=== PATIENT | female | born 1965 | race Caucasian/White ===

== ENCOUNTER 2021-02-23 15:53 | Outpatient (CLI) | payer OTHER, SELFPAY ==
--- NOTE | 2021-02-23 16:11 | XR_ITS ---
WS: [id number] Left hand, 3 views, 02/23/2021 Clinical Data: FATIGUE, PAIN IN JOINT, INSOMNIA Comparison: None. Findings: No fractures or dislocations are seen. The soft tissues are unremarkable. The joint spaces are normal XR/XR hand LT min 3V* [id number] Impression: Negative left hand.
--- NOTE | 2021-02-23 16:11 | XR_ITS ---
WS: [id number] Right hand, 3 views, 02/23/2021 Clinical Data: FATIGUE,PAIN IN JOINT,INSOMNIA Comparison: None. Findings: No fractures or dislocations are seen. The soft tissues are unremarkable. The joint space s are normal XR/XR hand RT min 3V* [id number] Impression: Negative right hand.
== END 2021-02-23 15:54 | disposition home or self-care (01) ==
PROVIDERS: PCP Nurse Practitioner Family; Visit Provider Nurse Practitioner Family
DX: R53.83 Other fatigue (principal); M25.50 Pain in unspecified joint; G47.00 Insomnia, unspecified
CPT/HCPCS: 73130

== ENCOUNTER → 2021-04-18 15:02 | Outpatient (BNVA) | payer OTHER, SELFPAY | PROVIDERS: PCP Nurse Practitioner Family; Visit Provider Specialist | DX: M25.531 Pain in right wrist (principal); M25.532 Pain in left wrist; R20.0 Anesthesia of skin; R20.2 Paresthesia of skin | CPT/HCPCS: 95910 ==

== ENCOUNTER 2021-09-22 14:23 | Outpatient (CLI) | payer OTHER, SELFPAY ==
--- NOTE | 2021-09-22 14:39 | XR_ITS ---
WS: [id number] Chest 2 views, 09/22/2021 Clinical Data: COUGH Comparison: None. Findings: No nodules, masses or effusions are seen. The heart is normal. The pulmonary vascularity is not increased. No pneumonia or pneumothorax is seen. XR/XR chest 2V* [id number] Impression: Negative chest.
== END 2021-09-22 14:24 | disposition home or self-care (01) ==
PROVIDERS: PCP Nurse Practitioner Family; Visit Provider Nurse Practitioner Family
DX: R05.9 Cough, unspecified (principal)
CPT/HCPCS: 71046

== ENCOUNTER 2023-12-05 14:12 | Outpatient (CLI) | payer OTHER, SELFPAY ==
--- NOTE | 2023-12-05 14:18 | MM_ITS ---
WS: [id number] BILATERAL 3D TOMOSYNTHESIS DIGITAL SCREENING MAMMOGRAPHY WITH CAD CLINICAL INFORMATION: SCREENING HISTORY: Screening mammogram. No current complaints. COMPARISON: 2013 TECHNIQUE: Bilateral CC and MLO views. FINDINGS: The breasts are composed of heterogeneous fibroglandular density tissue, which can limit the detectio n of small underlying mass lesions. No suspicious mass, asymmetry, calcifications, or architectural d istortion. No evidence of malignancy. Biopsy marker LEFT breast. A few incidental punctate calcificat ions. IMPRESSION: MM/[place] [id number] BI-RADS: 2-Benign FOLLOW UP: 1 Year Follow-up Recommend return to annual screening mammography.
== END 2023-12-05 14:13 | disposition home or self-care (01) ==
LOC: RAD 14:12
PROVIDERS: PCP Nurse Practitioner Family; Visit Provider Nurse Practitioner Family
DX: Z12.31 Encounter for screening mammogram for malignant neoplasm of breast (principal)
CPT/HCPCS: 77063; 77067

== ENCOUNTER 2024-01-30 09:47 | Emergency (ER) | payer OTHER, SELFPAY ==
[2024-01-30 09:58] VITALS: BP 179/93; PULSE 69; RESP 14; TEMP 36.6; O2SAT 98
[2024-01-30 10:22] VITALS: PULSE 70; O2SAT 96
[2024-01-30 10:31] LABS: Basophils # 0.1 10^3/uL (0.0-0.1); Basophils % 1.4 %; Eosinophils # 0.1 10^3/uL (0.0-0.8); Eosinophils % 2.5 %; Hematocrit 46.2 % (36-47); Lymphocytes # 1.6 10^3/uL (0.8-4.8); Lymphocytes % 28.9 %; Mean Corpuscular HGB Conc 34.2 g/dL (30-55); Mean Corpuscular Hemoglobin 34.3 pg (27-33); Mean Corpuscular Volume 100.2 fl (85-98); Monocytes # 0.4 10^3/uL (0.2-0.9); Monocytes % 6.2 %; Neutrophils # 3.44 10^3/uL (1.8-7.7); Neutrophils % 60.6 %; Nucleated Red Blood Cells % 0 %; Platelet Count 324 10^3/cmm (157-399); Red Blood Count 4.61 10^6/uL (3.85-5.65); Red Cell Distribution Width 11.6 % (12.1-15.1); White Blood Count 5.67 10^3/uL (3.29-11.43)
--- NOTE | 2024-01-30 10:31 | ECG_ITS ---
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 Measurements Intervals [place] Rate: 59 P: 60 CT: 187 QRS: 8 QRSD: 86 T: 38 QT: 394 QTc: 390 Interpretive Statements SINUS BRADYCARDIA LOW QRS VOLTAGE IN PRECORDIAL LEADS [QRS DEFLECTION < 1.0 mV IN CHEST LEADS] No previous ECG available for comparison Electronically Signed On 01-30-2024 20:01:32 CDT by Jeannie Rome M.D. [email or web address]
[2024-01-30 10:37] VITALS: BP 170/97; BP 171/98; BP 177/97; PULSE 66; PULSE 67; PULSE 68
[2024-01-30 11:04] LABS: Alanine Aminotransferase 26 U/L (0-33); Albumin Level 4.7 g/dL (3.5-5.2); Alkaline Phosphatase 99 U/L (35-105); Anion Gap 17.3 (5-19); Aspartate Amino Transferase 26 U/L (0-32); Blood Urea Nitrogen 12 mg/dL (6-20); Calcium 9.5 mg/dL (8.5-10.5); Carbon Dioxide 26 mmol/L (22-29); Chloride 98 mmol/L (98-107); Globulin 3.7 g/dL (1.3-4.6); Glomerular Filtration Rate 85.6 mL/min (90-130); Glucose 103 mg/dL (65-115); Osmolality Calculated 284 mOsm/kg (285-295); Potassium 4.3 mmol/L (3.5-5.1); Sodium 137 mmol/L (136-145); Total Bilirubin 0.3 mg/dL (0.15-1.2); Total Protein 8.4 g/dL (6.6-8.7)
--- NOTE | 2024-01-30 11:48 | ED_ITS ---
HPI - Ear Problem 2 General: Chief complaint: Ear Stated complaint: dizzy, ear pain, weakness, headache Time Seen by Provider: 01/30/24 10:03 Source: patient Mode of arrival: ambulatory History of Present Illness: 58-year-old female presents to the [facility] ency room with complaints of ear pain and dizziness. She sometimes has pain in her neck and into her arm. The dizziness seems to occur at random times she does not notice anything that exacerbates or relieves it. No difficulty with vision speech swallowing no ataxia. No focal neurologic deficits are noted MD Complaint: ear pain Location: left ear Relieving factors: nothing Exacerbating factors: nothing Associated symptoms: Reports ear or mastoid pain; Denies external ear pain, fever(s), headache(s), hearing loss, neck pain, rhinorrhea or tinnitus Review of Systems 2 Const: Denies: fever(s), chills, body aches, change in appetite, fatigue or malaise ENMT: Reports: ear or mastoid pain; Denies: throat pain, tinnitus, nasal discharge or nasal congestion Card: Denies: chest pain, edema, dyspnea on exertion or orthopnea Resp: Denies: dyspnea, productive cough or non-productive cough GI: Denies: abdominal pain, nausea, vomiting, hematemesis, coffee ground emesis, diarrhea, constipation, bloating, hematochezia or melena : Denies: flank pain, difficulty voiding, dysuria, urinary frequency or urinary urgency Musc: Denies: neck pain Skin/Breast: Denies: rash or pruritus Neuro: Denies: headache(s) PFSH ED 2 PFSH: Social History Smoking and tobacco/nicotine status: never used tobacco/nicotine Physical Exam 2 Const: COMMON NORMALS: no acute distress GENERAL APPEARANCE: cooperative and comfortable ORIENTATION/CONSCIOUSNESS: Yes awake, Yes oriented to person, Yes oriented to place and Yes oriented to time HENMT: COMMON NORMALS: normocephalic, atraumatic, hearing grossly normal bilaterally, external ears normal, EAC's normal, TM's normal bilaterally, Normal nasal mucous membranes and turbinates present, moist oral mucous membranes and oropharynx normal HEAD & SCALP: normocephalic and atraumatic NOSE: Normal nasal mucous membranes and turbinates present EXTERNAL EAR: Yes external ears normal EXTERNAL AUDITORY CANAL: EAC's normal TYMPANIC MEMBRANE: TM's normal bilaterally Eye: COMMON NORMALS: Equal, round and reactive pupils present, EOMs intact bilaterally, conjunctivae normal and no scleral icterus CONJUNCTIVA: Yes conjunctivae normal PUPIL: Yes Equal, round and reactive pupils present Neck/C-Spine: COMMON NORMALS: full ROM, no lymphadenopathy, supple and no JVD Lymph: LYMPHATIC: no lymphadenopathy noted and no lymphedema noted Resp: COMMON NORMALS: normal respiratory effort, No retractions, No use of accessory muscles and clear to auscultation bilaterally AUSCULTATION: clear to auscultation bilaterally Cardio: COMMON NORMALS: no JVD, regular rate, regular rhythm and No murmurs present (Cardio) RATE: regular rate RHYTHM: regular rhythm GI: COMMON NORMALS: Soft to palpation and No hepatosplenomegaly present A USCULTATION: Yes normoactive bowel sounds PALPATION: Yes Soft to palpation, No Tenderness to palpation present (GI), No Guarding due to palpation present (GI) and Yes No hepatosplenomegaly present Extremity: COMMON NORMALS: normal to inspection, capillary refill normal, no clubbing, cyanosis or edema, no calf tenderness and no pedal edema Neuro: SENSORIUM/ORIENTATION: Yes oriented to person, Yes oriented to place and Yes oriented to time Skin: COMMON NORMALS: no rashes or lesions noted GENERAL SKIN EXAM: no rashes or lesions noted Course 2 Vital Signs: Vital signs: Vital Signs Temperature 97.9 F 01/30/24 09:58 Pulse Rate 76 01/30/24 13:44 Respiratory Rate 14 01/30/24 09:58 Blood Pressure 150/88 01/30/24 13:44 Pulse Oximetry 98 01/30/24 13:44 Oxygen Delivery Me thod Room Air 01/30/24 10:22 [facility] - Ear Medical Decision Making Labs and imaging reviewed. No emergent findings neurologic exam is normal. Will start on meclizine to use as needed for labyrinthitis. Follow-up with her primary care if persistent. Medical Records I reviewed the patient's medical records. Lab Data I reviewed the patient's lab results. 01/30/24 10:20 01/30/24 10:20 Laboratory Results WBC 5.67 10^3/uL (3.29-11.43) 01/30/24 10:20 RBC 4.61 10^6/uL (3.85-5.65) 01/30/24 10:20 Hgb 15.80 g/dL (11.27-16.99) 01/30/24 10:20 Hct 46.2 % (36-47) 01/30/24 10:20 MCV 100.2 fl (85-98) H 01/30/24 10:20 MCH 34.3 pg (27-33) H 01/30/24 10:20 MCHC 34.2 g/dL (30-55) 01/30/24 10:20 RDW 11.6 % (12.1-15.1) L 01/30/24 10:20 Plt Count 324 10^3/cmm (157-399) 01/30/24 10:20 MPV 9.0 fL (7.4-10.4) 01/30/24 10:20 Neut % (Auto) 60.6 % 01/30/24 10:20 Lymph % (Auto) 28.9 % 01/30/24 10:20 [place] % (Auto) 6.2 % 01/30/24 10:20 Eos % (Auto) 2.5 % 01/30/24 10:20 Baso % (Auto) 1.4 % 01/30/24 10:20 Neut # (Auto) 3.44 10^3/uL (1.8-7.7) 01/30/24 10:20 Lymph # (Auto) 1.6 10^3/uL (0.8-4.8) 01/30/24 10:20 [place] # (Auto) 0.4 10^3/uL (0.2-0.9) 01/30/24 10:20 Eos # (Auto) 0.1 10^3/uL (0.0-0.8) 01/30/24 10:20 Baso # (Auto) 0.1 10^3/uL (0.0-0.1) 01/30/24 10:20 Nucleated RBC % (auto) 0 % 01/30/24 10:20 Nucleated RBCs # 0.0 /100WBC 01/30/24 10:20 Sodium 137 mmol/L (136-145) 01/30/24 10:20 Potassium 4.3 mmol/L (3.5-5.1) 01/30/24 10:20 Chloride 98 mmol/L (98-107) 01/30/24 10:20 Carbon Dioxide 26 mmol/L (22-29) 01/30/24 10:20 Anion Gap 17.3 (5-19) 01/30/24 10:20 BUN 12 mg/dL (6-20) 01/30/24 10:20 Creatinine 0.7 mg/dL (0.5-0.9) 01/30/24 10:20 GFR Calculation 85.6 mL/min (90-130) L 01/30/24 10:20 Glucose 103 mg/dL (65-115) 01/30/24 10:20 Calculated Osmolality 284 mOsm/kg (285-295) L 01/30/24 10:20 Calcium 9.5 mg/dL (8.5-10.5) 01/30/24 10:20 Total Bilirubin 0.3 mg/dL (0.15-1.2) 01/30/24 10:20 AST 26 U/L (0-32) 01/30/24 10:20 ALT 26 U/L (0-33) 01/30/24 10:20 Alkaline Phosphatase 99 U/L (35-105) 01/30/24 10:20 Troponin T Baseline < 6 ng/L (0-10) 01/30/24 10:20 Troponin T 120 Minute 6.00 ng/L (0-10) 01/30/24 12:31 Delta Troponin T 0.91817 ABS# (0-10) 01/30/24 12:31 Total Protein 8.4 g/dL (6.6-8.7) 01/30/24 10:20 Albumin 4.7 g/dL (3.5-5.2) 01/30/24 10:20 Globulin 3.7 g/dL (1.3-4.6) 01/30/24 10:20 All radiology interpretation(s) finalized by discharge Discharge Plan Discharge Patient Disposition: Home Clinical Impression: Labyrinthitis Condition: Stable Prescriptions: New meclizine 25 mg tablet 25 mg PO QID PRN (Reason: dizziness) Qty: 30 0RF No Action lisinopril 40 mg tablet 40 mg PO DAILY amlodipine 5 mg tablet 5 mg PO DAILY propranolol 10 mg tablet 10 mg PO BID PRN (Reason: Anxiety) Discharge Orders: Discharge ED (Routine); Ordered 01/30/24 Ordered By: Asher Chappell Referrals: Katarina Davis NP [Primary Care Provider] - Discharge Diet: Usual diet Discharge Activity: Increase activity as tolerated Patient Instructions: Labyrinthitis (ED), Opioid Safety, Pain Management Activity Restrictions/Additional Instructions: Thank you for choosing [facility] for your healthcare needs today. Please realize this is an emergency room and that we are providing you with a medical screening exam and this may not be complete and all inclusive of all the testing and or work up that you may need to determine your ailment or severity of your illness. It is very important that you follow up as instructed or that you return to the Emergency Department should you have concerns or if your condition changes or worsens in any way. Coding Level of Care Code ED Battery Hand for Rachel Diaz
[2024-01-30 12:25] VITALS: BP 153/97; PULSE 83; O2SAT 100
[2024-01-30 12:40] LABS: Troponin(5th) Baseline < 6 ng/L (0-10)
[2024-01-30 12:51] VITALS: BP 150/88; PULSE 76; O2SAT 98
[2024-01-30 12:53] LABS: Troponin 5 2HR Delta 0.00001 ABS# (0-10)
[2024-01-30 13:44] VITALS: BP 150/88; PULSE 76; O2SAT 98
== END 2024-01-30 13:44 | disposition home or self-care (01) ==
PROVIDERS: Emergency Provider Family Medicine; PCP Nurse Practitioner Family
DX: H83.09 Labyrinthitis, unspecified ear (principal)
CPT/HCPCS: 36415; 80053; 84484; 85025; 93005; 99284

== ENCOUNTER 2024-02-01 14:53 | Outpatient (CLI) | payer OTHER, SELFPAY ==
--- NOTE | 2024-02-01 14:59 | XR_ITS ---
WS: [id number] Left shoulder, 3 views, 02/01/2024 Clinical Data: PAIN IN LEFT ARM M79.602 Comparison: None. Findings: No fractures or dislocations are seen. The AC joint is normal. The adjacent left clavicle, left scapu la and ribs are normal. The soft tissues are unremarkable. XR/XR shoulder LT min 2V* [id number] Impression: Negative left shoulder.
== END 2024-02-01 14:54 | disposition home or self-care (01) ==
LOC: RAD 14:56
PROVIDERS: PCP Nurse Practitioner Family; Visit Provider Nurse Practitioner Family
DX: M25.512 Pain in left shoulder (principal)
CPT/HCPCS: 73030

== ENCOUNTER 2025-05-20 09:21 | Outpatient (CLI) | payer OTHER, SELFPAY ==
--- NOTE | 2025-05-20 09:20 | MM_ITS ---
WS: [id number] BILATERAL SCREENING DIGITAL TOMOSYNTHESIS MAMMOGRAM WITH CAD HISTORY: SCREENING COMPARISON: 12/05/2023, 10/14/2013 Bilateral CC and MLO views with tomosynthesis and synthetic mammography submitted. Computer aided detection analyzed. Breast composition: The breasts are extremely dense, which lowers the sensitivity of mammography. No suspicious masses, microcalcifications or architectural distortion. Scattered benign calcifications within each breast. Biopsy clip inferior medial LEFT breast. No suspicious masses or areas of increased density. MM/MM scr tomosynthesis [id number] IMPRESSION: BI-RADS: 2 - Benign FOLLOW UP: 1 Year Follow-up
== END 2025-05-20 09:22 | disposition home or self-care (01) ==
LOC: MOBLMAM 09:24
PROVIDERS: PCP Nurse Practitioner Family; Visit Provider Nurse Practitioner Family
DX: Z12.31 Encounter for screening mammogram for malignant neoplasm of breast (principal); R92.343 Mammographic extreme density, bilateral breasts; R92.1 Mammographic calcification found on diagnostic imaging of breast; Z97.8 Presence of other specified devices
CPT/HCPCS: 77063; 77067